=== PATIENT | female | born 1950 | race Caucasian/White ===

== ENCOUNTER → 2019-09-05 09:10 | Outpatient (BNVA) | payer MEDICARE, SELFPAY | PROVIDERS: Family Provider Family Medicine; PCP Family Medicine; Visit Provider Family Medicine | DX: K21.9 Gastro-esophageal reflux disease without esophagitis (principal); G47.00 Insomnia, unspecified; G47.09 Other insomnia; E78.5 Hyperlipidemia, unspecified; I10 Essential (primary) hypertension | CPT/HCPCS: 80053; 80061; 85025 ==

== ENCOUNTER 2019-11-29 10:06 | Emergency (ER) | payer MEDICARE, SELFPAY ==
[2019-11-29 10:15] VITALS: BP 179/79; PULSE 89; RESP 18; TEMP 36.8; O2SAT 96; BMI 34.9
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
[2019-11-29 11:11] VITALS: BP 164/68; PULSE 68; RESP 16; O2SAT 96
== END 2019-11-29 10:50 | disposition home or self-care (01) ==
LOC: ER 16:39
PROVIDERS: Emergency Provider Family Medicine; Family Provider Family Medicine; PCP Family Medicine
DX: S16.1XXA Strain of muscle, fascia and tendon at neck level, initial encounter (principal); X50.9XXA Other and unspecified overexertion or strenuous movements or postures, initial encounter
CPT/HCPCS: 12345; 99281

== ENCOUNTER → 2020-01-03 12:11 | Outpatient (BNVA) | payer MEDICARE, SELFPAY | PROVIDERS: Family Provider Family Medicine; PCP Family Medicine; Visit Provider Family Medicine | DX: E78.5 Hyperlipidemia, unspecified (principal); W57.XXXA Bitten or stung by nonvenomous insect and other nonvenomous arthropods, initial encounter; E11.9 Type 2 diabetes mellitus without complications; I10 Essential (primary) hypertension | CPT/HCPCS: 80053; 80061; 83036; 84443; 85025; 86618; 86666; 86757 ==

== ENCOUNTER 2020-02-25 10:06 | Outpatient (CLI) | payer MEDICARE, SELFPAY ==
--- NOTE | 2020-02-25 10:17 | XR_ITS ---
WS: [id number] Lateral views of cervical spine in the flexion, extension and neutral positions. 02/25/2020 Clinical Data: neck pain Comparison study: Cervical spine, 02/25/2020. Findings: The C4-C7 anterior cervical disc fusion is intact and stable. There is no motion seen throu gh this fusion. There is a small anterolisthesis of C3 on C4 of 0.2 cm which occurs during flexion. N o abnormalities are seen on extension.
--- NOTE | 2020-02-25 10:17 | XR_ITS ---
NOTE: Report was unsigned for reason: Order was edited. Original Signature date and time was: 02/25/20 1322 WS: [id number] Cervical spine, 3 views, 02/25/2020 Clinical Data: neck pain Comparison: None. Findings: The patient has had an anterior cervical disc fusion extending from C4 through C7 with artificial disc implants at C4-C5, C5-C6 and C6-C7. No compression fractures are seen. There is a small spur at the posterior inferior aspect of C3. The spinous processes are in good alignment. There is calcification to the right of the C4 vertebral body which may be in the right common carotid artery. The lung apices are unremarkable. The odontoid is normal. WS: [id number] Lateral views of cervical spine in the flexion, extension and neutral positions. 02/25/2020 Clinical Data: neck pain Comparison study: Cervical spine, 02/25/2020. Findings: The C4-C7 anterior cervical disc fusion is intact and stable. There is no motion seen through this fusion. There is a small anterolisthesis of C3 on C4 of 0.2 cm which occurs during flexion. No abnormalities are seen on extension. XR/XR cervical spine fl/ex [id number] Impression: 1. Intact anterior cervical disc fusion of C4-C7. 2. Small anterolisthesis of C3 on C4 on flexion. [facility] XR/XR cervical spine 3V* [id number] Impression: 1. Anterior cervical disc fusion from C4 through C7. 2. Possible calcification in the right common carotid artery.
== END 2020-02-25 10:07 | disposition home or self-care (01) ==
PROVIDERS: Family Provider Family Medicine; PCP Family Medicine; Visit Provider Family Medicine
DX: M54.2 Cervicalgia (principal); M43.22 Fusion of spine, cervical region
CPT/HCPCS: 72040; 72050

== ENCOUNTER 2020-02-28 15:27 | Outpatient (CLI) | payer MEDICARE, SELFPAY ==
--- NOTE | 2020-02-28 16:00 | CT_ITS ---
WS: [id number] CT cervical spine. Additional two-dimensional coronal and sagittal reconstruction was performed. 02/27 Clinical Data: Neck pain Comparison: Cervical spine, 02/25/2020. DLP: 1618.[address] scans at [facility] use at least one of these dose optimization techniques: automat ed exposure control; mA and/or kV adjustment per patient size (includes targeted exams where dose is matched to clinical indication); or iterative reconstruction. Findings: No compression fractures are seen. There is an anterior cervical disc fusion from C4 through C7. Meron ficial disc spacers are used at C4-5, C5-6 and C6-7. No prevertebral soft tissue swelling is noted. T he odontoid is normal.. The lung apices and the soft tissues of the neck show no significant abnormal ities. There are questionable calcifications in the region of the carotid bifurcations. C2-C3: No disc bulge, canal stenosis or foraminal stenosis is seen. C3-C4: No disc bulge, canal stenosis or foraminal stenosis is seen. C4-C5: No disc bulge, canal stenosis or foraminal stenosis is seen. C5-C6: Minimal posterior osteophyte formation is causing mild foraminal stenosis. C6-C7: Posterior osteophyte formation on the left causing left foraminal narrowing. C7-T1: No disc bulge, canal stenosis or foraminal stenosis is seen. CT/CT cervical spin wo con* [id number] Impression: 1. Intact anterior cervical disc fusion from C4 through C7. 2. Posterior osteophyte formation at C5-C6 causes mild bilateral foraminal sten osis. 3. Posterior osteophyte formation on the left at C6-C7 causes left foraminal na rrowing.
== END 2020-02-28 15:28 | disposition home or self-care (01) ==
LOC: RADWPI 15:31
PROVIDERS: Family Provider Family Medicine; PCP Family Medicine; Visit Provider Family Medicine
DX: M43.22 Fusion of spine, cervical region (principal); M25.78 Osteophyte, vertebrae; M48.02 Spinal stenosis, cervical region
CPT/HCPCS: 72125

== ENCOUNTER → 2020-04-30 15:30 | Outpatient (BNVA) | payer MEDICARE, SELFPAY | PROVIDERS: Family Provider Family Medicine; PCP Family Medicine; Visit Provider Family Medicine | DX: E11.9 Type 2 diabetes mellitus without complications (principal); E78.5 Hyperlipidemia, unspecified | CPT/HCPCS: 80053; 80061; 83036; 83721; 85025 ==

== ENCOUNTER 2020-05-07 06:00 | Outpatient (RCR) | payer MEDICARE, SELFPAY | END 2020-05-14 23:59 | disposition home or self-care (01) | LOC: TPT 06:00 | PROVIDERS: PCP Family Medicine; Referring Provider Family Medicine; Visit Provider Family Medicine | DX: G89.29 Other chronic pain (principal); M54.2 Cervicalgia | CPT/HCPCS: 97110; 97140; 97161; G0283 ==

== ENCOUNTER 2020-05-15 06:00 | Outpatient (RCR) | payer MEDICARE, SELFPAY | END 2020-06-14 23:59 | disposition home or self-care (01) | LOC: TPT 06:00 | PROVIDERS: PCP Family Medicine; Referring Provider Family Medicine; Visit Provider Family Medicine | DX: G89.29 Other chronic pain (principal); M54.2 Cervicalgia | CPT/HCPCS: 97110; 97140; G0283 ==

== ENCOUNTER 2020-06-15 06:00 | Outpatient (RCR) | payer MEDICARE, SELFPAY | END 2020-07-14 23:59 | disposition home or self-care (01) | LOC: TPT 06:00 | PROVIDERS: PCP Family Medicine; Visit Provider Family Medicine | DX: M54.2 Cervicalgia (principal); G89.29 Other chronic pain | CPT/HCPCS: 97110; 97140; G0283 ==

== ENCOUNTER → 2020-11-05 09:34 | Outpatient (BNVA) | payer MEDICARE, SELFPAY | PROVIDERS: PCP Family Medicine; Visit Provider Family Medicine | DX: E11.9 Type 2 diabetes mellitus without complications (principal); E55.9 Vitamin D deficiency, unspecified; E78.5 Hyperlipidemia, unspecified; I10 Essential (primary) hypertension | CPT/HCPCS: 80053; 80061; 82306; 83036; 84443; 85025 ==

== ENCOUNTER 2020-12-24 09:59 | Outpatient (CLI) | payer MEDICARE, SELFPAY ==
--- NOTE | 2020-12-24 10:30 | MM_ITS ---
WS: [id number] BILATERAL DIGITAL SCREENING MAMMOGRAPHY WITH CAD CLINICAL INFORMATION: Z12.31 - Encounter for screening mammogram for malignant neoplasm of breast HISTORY: Screening mammogram. No current complaints. COMPARISON: and January 24, 2017 TECHNIQUE: Bilateral CC and MLO views. FINDINGS: Scattered fibroglandular densities bilaterally. No suspicious focal mass, asymmetry, calcifications, or architectural distortion. No evidence of malignancy. Incidental punctate and lucent centered calci fications. MM/[place] [id number] IMPRESSION: BI-RADS: 2-Benign FOLLOW UP: 1 Year Follow-up Recommend return to annual screening mammography.
== END 2020-12-24 10:00 | disposition home or self-care (01) ==
PROVIDERS: PCP Family Medicine; Visit Provider Family Medicine
DX: Z12.31 Encounter for screening mammogram for malignant neoplasm of breast (principal)
CPT/HCPCS: 77067

== ENCOUNTER → 2021-01-19 11:00 | Outpatient (BNVA) | payer MEDICARE, SELFPAY | PROVIDERS: PCP Family Medicine; Visit Provider Family Medicine | DX: L98.9 Disorder of the skin and subcutaneous tissue, unspecified (principal) | CPT/HCPCS: 88304; 88305 ==

== ENCOUNTER → 2021-02-11 11:56 | Outpatient (BNVA) | payer MEDICARE, SELFPAY | PROVIDERS: PCP Family Medicine; Visit Provider Family Medicine | DX: E11.9 Type 2 diabetes mellitus without complications (principal); I10 Essential (primary) hypertension; E78.2 Mixed hyperlipidemia; G47.00 Insomnia, unspecified; K21.9 Gastro-esophageal reflux disease without esophagitis; Z79.4 Long term (current) use of insulin | CPT/HCPCS: 80053; 80061; 83036; 83721; 84443; 85025 ==

== ENCOUNTER → 2021-04-23 09:26 | Outpatient (BNVA) | payer MEDICARE, SELFPAY | PROVIDERS: PCP Family Medicine; Visit Provider Nurse Practitioner Family | DX: Z20.822 Contact with and (suspected) exposure to COVID-19 (principal) | CPT/HCPCS: 87635 ==

== ENCOUNTER → 2021-05-12 10:51 | Outpatient (BNVA) | payer MEDICARE, SELFPAY | PROVIDERS: PCP Family Medicine; Visit Provider Family Medicine | DX: R05 Cough (principal) | CPT/HCPCS: 87635 ==

== ENCOUNTER → 2021-05-29 09:53 | Outpatient (BNVA) | payer MEDICARE, SELFPAY | PROVIDERS: PCP Family Medicine; Visit Provider Family Medicine | DX: R05.9 Cough, unspecified (principal); R53.83 Other fatigue | CPT/HCPCS: 71046; 82607 ==

== ENCOUNTER → 2021-07-20 12:08 | Outpatient (BNVA) | payer MEDICARE, SELFPAY | PROVIDERS: PCP Family Medicine; Visit Provider Family Medicine | DX: E11.9 Type 2 diabetes mellitus without complications (principal); E78.2 Mixed hyperlipidemia; G47.00 Insomnia, unspecified; I10 Essential (primary) hypertension; Z79.4 Long term (current) use of insulin | CPT/HCPCS: 80053; 80061; 83036; 83721; 84443; 85025 ==

== ENCOUNTER → 2021-11-24 11:23 | Outpatient (BNVA) | payer MEDICARE, OTHER, SELFPAY | PROVIDERS: PCP Family Medicine; Visit Provider Family Medicine | DX: I10 Essential (primary) hypertension (principal); E11.9 Type 2 diabetes mellitus without complications; Z79.4 Long term (current) use of insulin; E78.2 Mixed hyperlipidemia; G47.00 Insomnia, unspecified; J45.909 Unspecified asthma, uncomplicated | CPT/HCPCS: 80053; 80061; 83036; 84443; 85025 ==

== ENCOUNTER 2022-01-23 07:58 | Observation (INO) | payer MEDICARE, SELFPAY ==
[2022-01-23] VITALS (8 sets, daily range): BP systolic 125–166; BP diastolic 64–86; PULSE 59–83; RESP 14–19; TEMP 36.8–37; O2SAT 92–97; BMI 34.0; BMI 33.6
--- NOTE | 2022-01-23 08:36 | ECG_ITS ---
[facility] Test Date: 2022-01-23 Pat Name: Lauren Avalos Department: Room: Gender: Female Certified Ophthalmic Surgical Assistant: : [id number] Requested By: Sabino Hardin Order Number: [id number] Kevin MD: Glen Miller M.D. Measurements Intervals [place] Rate: 73 P: 6 WA: 164 QRS: 41 QRSD: 85 T: 2 QT: 368 QTc: 408 Interpretive Statements SINUS RHYTHM LOW QRS VOLTAGE IN PRECORDIAL LEADS [QRS DEFLECTION < 1.0 mV IN CHEST LEADS] ANTEROSEPTAL MYOCARDIAL INFARCTION , OF INDETERMINATE AGE [40+ ms Q WAVE IN V1-V4] No previous ECG available for comparison Electronically Signed On 01-23-2022 18:59:04 CDT by Glen Miller M.D. [id number]
--- NOTE | 2022-01-23 08:36 | CTR_ITS ---
PROCEDURE INFORMATION: Exam: CT Head Without Contrast Exam date and time: 01/23/2022 8:55 AM Age: 71 years old Clinical indication: Stroke-like symptoms; Headache; Lt upper extremity weakness; Additional info: Symptoms of acute stroke TECHNIQUE: Imaging protocol: Computed tomography of the head without contrast. Radiation optimization: All CT scans at this facility use at least one of these dose optimization techniques: automated exposure control; mA and/or kV adjustment per patient size (includes targeted exams where dose is matched to clinical indication); or iterative reconstruction. Other technique: STROKE PROTOCOL was implemented. COMPARISON: CT cervical spin wo con* [id number] 02/28/2020 3:54 PM RADIATION DOSE METRICS: Total DLP (mGy-cm): 769.69 FINDINGS: Brain: There are tiny old lacunar infarcts a in the left basal ganglia. No intracranial hemorrhage, edema or other acute abnormalities are seen in the brain. There is no mass effect or midline shift. Cerebral ventricles: No ventriculomegaly. Paranasal sinuses: Visualized sinuses are unremarkable. No fluid levels. Mastoid air cells: Visualized mastoid air cells are well aerated. Bones/joints: Unremarkable. No acute fracture. Soft tissues: Unremarkable. CT/CT head wo con* [id number] IMPRESSION: Tiny old lacunar infarcts in the left basal ganglia. No acute abnormality. ASSESSMENT: ASPECTS ([place] Stroke Program Early CT Score) is 10.
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
[2022-01-23 08:55] LABS: Basophils % 0.3 %; Eosinophils # 0.3 10^3/uL (0.0-0.8); Eosinophils % 2.6 %; Hematocrit 47.4 % (37.0-47.0); Hemoglobin 15.6 g/dL (11.5-15.3); Lymphocytes # 3.7 10^3/uL (0.8-4.8); Lymphocytes % 31.7 %; Mean Corpuscular HGB Conc 32.9 g/dL (30.0-36.0); Mean Corpuscular Hemoglobin 30.1 pg (28.0-34.0); Mean Corpuscular Volume 91.5 fl (81-99); Mean Platelet Volume 10.7 fL (7.4-10.4); Monocytes # 1.1 10^3/uL (0.2-0.9); Monocytes % 9.1 %; Neutrophils # 6.47 10^3/uL (1.8-7.7); Nucleated Red Blood Cells % 0 %; Platelet Count 252 10^3/cmm (130-400); Red Blood Count 5.18 10^6/uL (4.1-5.3); Red Cell Distribution Width 13.9 % (12.1-15.1); White Blood Count 11.6 10^3/uL (4.0-10.0)
[2022-01-23 08:56] LABS: Add Urine Microscopic? NO; Charge for UA Resulting for Rev
[2022-01-23 09:07] LABS: Amphetamines Screen Urine Negative (Negative); Barbiturates Screen Urine Negative (Negative); Benzodiazepines Screen Urine Positive (Negative); Cocaine Screen Urine Negative (Negative); Opiate Screen Urine Negative (Negative); PCP Screen Urine Negative (Negative); THC Screen Urine Negative (Negative)
[2022-01-23 09:18] LABS: Alanine Aminotransferase 28 U/L (0-33); Albumin Level 4.6 g/dL (3.5-5.2); Alkaline Phosphatase 66 IU/L (35-105); Anion Gap 17.4 (5-19); Aspartate Amino Transferase 38 U/L (0-32); Blood Urea Nitrogen 25 mg/dL (8-23); Calcium 9.6 mg/dL (8.5-10.5); Carbon Dioxide 26 mmol/L (22-29); Chloride 102 mmol/L (98-107); Globulin 2.4 g/dL (1.3-4.6); Glucose 115 mg/dL (65-115); Magnesium 2.2 mg/dL (1.7-2.3); Osmolality Calculated 297 mOsm/kg (285-295); Potassium 4.4 mmol/L (3.5-5.1); Sodium 141 mmol/L (136-145); Total Bilirubin 0.3 mg/dL (0.15-1.2); Troponin(5th) Baseline 6 ng/L (0-10)
[2022-01-23 09:19] LABS: Bilirubin Urine Neg (Negative); Blood Urine Neg (Negative); Glucose Urine UA 4+ (Normal); Ketones Urine Negative (Negative); Leukocyte Esterase Urine Negative (Negative); Nitrate Urine Negative (Negative); Protein Urine Neg (Negative); Specific Gravity, Urine 1.015 (1.005-1.030); Urine Appearance Clear (CLEAR); Urine Color Yellow (Yellow); Urobilinogen Urine Norm (Negative); pH Urine 5 (5-7)
--- NOTE | 2022-01-23 09:20 | PC.PHAR ---
pt states she takes care of her own medications-pt states she use to have an inhaler but no longer uses them
[2022-01-23 11:23] LABS: Troponin 5 2HR 6.34 ng/L (0-10)
[2022-01-23 11:33] LABS: Troponin 5 2HR Delta 0.34 ABS# (0-10)
[2022-01-23 11:57] LABS: Glucose Point of Care 64 mg/dL (70-110)
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
--- NOTE | 2022-01-23 14:41 | USCV_ITS ---
Lauren Avalos Age: 71 Gender: F : 1950 Exam Date: 01/23/2022 15:11 Ordering Phys: Megan Good MD Technologist: CEASAR Exam Location: [facility] [place] Indication: STROKE BP: 146 / 81 HR: 58 Rhythm: Sinus Technical Quality: Adequate MEASUREMENTS (Male / Female) Normal Values 2D ECHO LV Diastolic Diameter PLAX 4.4 cm 4.2 - 5.9 / 3.9 - 5.3 cm LV Systolic Diameter PLAX 2.9 cm IVS Diastolic Thickness 1.5 cm 0.6 - 1.0 / 0.6 - 0.9 cm IVS Systolic Thickness 1.7 cm LVPW Diastolic Thickness 1.0 cm 0.6 - 1.0 / 0.6 - 0.9 cm LVPW Systolic Thickness 1.2 cm LVOT Diameter 2.0 cm LV Ejection Fraction 2D Teich 63.3 % LV Ejection Fraction MOD 2C 62.0 % LV Ejection Fraction 2C AL 57.5 % LA Diameter 3.4 cm LA Width 3.0 cm LA Height 4.7 cm RA Width 3.8 cm RA Height 4.5 cm Aorta at Sinotubular Diameter 2.2 cm IVC Diameter 1.7 cm M-MODE Aortic Annulus Diameter 3.1 cm LA Ao Ratio MM 1.1 DOPPLER AV Peak Velocity 150.7 cm/s LVOT Peak Velocity 89.0 cm/s AV Area Cont Eq vti 2.1 cm squared AV Area Cont Eq pk 1.9 cm squared MV Peak Velocity 126.0 cm/s MV Area PHT 3.2 cm squared Mitral E to A Ratio 0.8 MV E' Velocity 48.0 cm/s Mitral E to MV E' Ratio 13.6 Mitral E to LV E' Lateral Ratio 11.4 Mitral E to LV E' Septal Ratio 17.4 TR Peak Velocity 158.4 cm/s TR Peak Gradient 10.0 mmHg TR Mean Velocity 137.4 cm/s TR Mean Gradient 7.8 mmHg TR Velocity Time Integral 45.8 cm TV Peak E Velocity 50.0 cm/s Right Atrial Pressure 3.0 mmHg Pulmonary Artery Systolic Pressu 13.0 mmHg PV Peak Velocity 85.0 cm/s RV Acceleration Time 0.1 s RV Ejection Time 0.3 s RV AcT/ET 0.2 FINDINGS Left Ventricle Normal left ventricular size and systolic function, EF 55 %. No regional wall motion abnormalities. Grade I/IV diastolic dysfunction (abnormal relaxation filling pattern), normal to mildly elevated filling pressures. Right Ventricle The right ventricle is normal in size and function. Right Atrium The right atrium is normal in size. Left Atrium Mildly increased left atrial size. Mitral Valve Thickened mitral valve. Mild mitral annular calcification. Trace mitral valve regurgitation. Aortic Valve Mild aortic valve regurgitation. Tricuspid Valve No gross abnormalities noted Pulmonic Valve Pulmonic valve not well visualized. Pericardium Normal pericardium without effusion. Aorta Normal ascending aorta dimension. IVC Inferior vena cava not visualized. CONCLUSIONS Normal left ventricular size and systolic function, EF 55 %. No regional wall motion abnormalities. Type I diastolic dysfunction. Thickened mitral valve. Mild mitral annular calcification. Trace mitral valve regurgitation. Mild aortic valve regurgitation. Mildly increased left atrial size. There is no pericardial effusion. There are no intracardiac masses. No previous study is available for comparison. Dr Glen Miller MD FACC (Electronically Signed) Final Date: 23 January 2022 16:49 S
--- NOTE | 2022-01-23 14:41 | CTR_ITS ---
PROCEDURE INFORMATION: Exam: CT Angiography Head With Contrast, Arteriography Exam date and time: 01/23/2022 4:51 PM Age: 71 years old Clinical indication: Weakness; Additional info: CVA TECHNIQUE: Imaging protocol: Computed tomography angiography of the head with contrast. Exam focused on the arteries. 3D rendering (Not supervised by radiologist): MIP and/or 3D reconstructed images were created by the technologist. Radiation optimization: All CT scans at this facility use at least one of these dose optimization techniques: automated exposure control; mA and/or kV adjustment per patient size (includes targeted exams where dose is matched to clinical indication); or iterative reconstruction. Contrast material: OMNIPAQUE 350; Contrast volume: 95 ml; Contrast route: INTRAVENOUS (IV); COMPARISON: CT head wo con* [id number] 01/23/2022 8:55 AM RADIATION DOSE METRICS: Total DLP (mGy-cm): 2129.49 FINDINGS: ANTERIOR CIRCULATION: Right internal carotid artery: Calcified plaque in the cavernous right internal carotid artery without significant stenosis. Right middle cerebral artery: Unremarkable. No occlusion or significant stenosis. No aneurysm. Right anterior cerebral artery: Unremarkable. No occlusion or significant stenosis. No aneurysm. Left internal carotid artery: Calcified plaque in the cavernous left internal carotid artery without significant stenosis. Left middle cerebral artery: Unremarkable. No occlusion or significant stenosis. No aneurysm. Left anterior cerebral artery: Unremarkable. No occlusion or significant stenosis. No aneurysm. POSTERIOR CIRCULATION: Right vertebral artery: Unremarkable. No occlusion or significant stenosis. No aneurysm. Left vertebral artery: Unremarkable. No occlusion or significant stenosis. No aneurysm. Basilar artery: Unremarkable. No occlusion or significant stenosis. No aneurysm. Right posterior cerebral artery: Unremarkable. No occlusion or significant stenosis. No aneurysm. Left posterior cerebral artery: Unremarkable. No occlusion or significant stenosis. No aneurysm. Brain: Small chronic lacunar infarct in the left lentiform nucleus. No intracranial hemorrhage. No abnormal enhancement. Cerebral ventricles: No ventriculomegaly. Orbital cavities: Prior cataract surgery. Bones/joints: Unremarkable. No acute fracture. Soft tissues: Unremarkable. PROCEDURE INFORMATION: Exam: CT Angiography Neck With Contrast Exam date and time: 01/23/2022 4:51 PM Age: 71 years old Clinical indication: Weakness; Additional info: CVA TECHNIQUE: Imaging protocol: Computed tomography angiography of the neck with contrast. 3D rendering (Not supervised by radiologist): MIP and/or 3D reconstructed images were created by the technologist. Radiation optimization: All CT scans at this facility use at least one of these dose optimization techniques: automated exposure control; mA and/or kV adjustment per patient size (includes targeted exams where dose is matched to clinical indication); or iterative reconstruction. Contrast material: OMNIPAQUE 350; Contrast volume: 95 ml; Contrast route: INTRAVENOUS (IV); COMPARISON: CT cervical spin wo con* [id number] 02/28/2020 3:54 PM RADIATION DOSE METRICS: Total DLP (mGy-cm): 2129.49 FINDINGS: Right common carotid artery: No stenosis. No dissection or occlusion. Right internal carotid artery: No stenosis of the extracranial segment. No dissection or occlusion. Right external carotid artery: No occlusion or stenosis of the origin. Left common carotid artery: Calcified plaque at the origin of the left common carotid artery without significant stenosis. Left internal carotid artery: Calcified plaque in the proximal left internal carotid artery with 15% diameter stenosis. Left external carotid artery: No occlusion or stenosis of the origin. Right vertebral artery: No stenosis. No dissection or occlusion. Left vertebral artery: No stenosis. No dissection or occlusion. Right subclavian artery: Calcified plaque in the proximal right subclavian artery without significant stenosis. Thyroid: 1.4 cm partially calcified right thyroid nodule. Soft tissues: Normal. No significant soft tissue swelling. Bones/joints: No acute fracture. CT/CT angio headneck* [id number] IMPRESSION: 1. No large artery occlusion or stenosis. IMPRESSION: 1. Calcified plaque with 15% diameter stenosis in the proximal left internal carotid artery. 2. 1.4 cm calcified right thyroid nodule. Ultrasound follow-up is recommended. COMMENTS: Consistent with the [employer]'s Incidental Findings Committee white paper (J Am Dangelo Radiol 2015): In patients aged 35 years and older with an incidental thyroid nodule equal to or greater than 1.[address], MRI or extrathyroidal US, further evaluation with dedicated thyroid US is recommended for patients with normal life expectancy and without comorbidities. For smaller nodules without suspicious features, no further evaluation or follow up is recommended. REFERENCES: NASCET CRITERIA. The degree of internal carotid artery stenosis is based on NASCET criteria. Normal is no stenosis. Mild is less than 50% stenosis. Moderate is 50-69% stenosis. Severe is 70% to 99% stenosis. Total occlusion is no detectable patent lumen.
[2022-01-23] MEDS: enoxaparin 40 mg/0.4 mL Syringe SUBCUT (15:27)
[2022-01-23] MEDS: iohexol 350 mg/mL 100 mL Btl IV (16:56)
[2022-01-23 17:24] LABS: Troponin 5 6HR Delta 0 ng/L (0-12)
[2022-01-23 18:00] LABS: Glucose Point of Care 77 mg/dL (70-110)
[2022-01-23 20:39] LABS: Glucose Point of Care 151 mg/dL (70-110)
[2022-01-23] MEDS: montelukast sodium 10 mg Tablet PO (21:13)
[2022-01-23] MEDS: atorvastatin 40 mg Tablet PO (21:13)
[2022-01-23] MEDS: amlodipine 5 mg Tablet PO (21:13)
[2022-01-23] MEDS: temazepam 15 mg Capsule 30 MG PO (23:45)
[2022-01-24] VITALS (12 sets, daily range): BP systolic 108–148; BP diastolic 67–82; PULSE 62–79; RESP 14–18; TEMP 36.3–37.1; O2SAT 92–98
[2022-01-24 04:29] LABS: Basophils % 0.3 %; Eosinophils # 0.3 10^3/uL (0.0-0.8); Eosinophils % 3.3 %; Hematocrit 47.7 % (37.0-47.0); Hemoglobin 15.3 g/dL (11.5-15.3); Lymphocytes # 3.8 10^3/uL (0.8-4.8); Mean Corpuscular HGB Conc 32.1 g/dL (30.0-36.0); Mean Corpuscular Hemoglobin 30.2 pg (28.0-34.0); Mean Corpuscular Volume 94.3 fl (81-99); Mean Platelet Volume 10.5 fL (7.4-10.4); Monocytes # 0.9 10^3/uL (0.2-0.9); Monocytes % 9.7 %; Neutrophils # 4.39 10^3/uL (1.8-7.7); Neutrophils % 46.5 %; Nucleated Red Blood Cells % 0 %; Platelet Count 259 10^3/cmm (130-400); Red Blood Count 5.06 10^6/uL (4.1-5.3); White Blood Count 9.5 10^3/uL (4.0-10.0)
[2022-01-24 04:49] LABS: Anion Gap 14.3 (5-19); Blood Urea Nitrogen 20 mg/dL (8-23); Calcium 9.4 mg/dL (8.5-10.5); Carbon Dioxide 26 mmol/L (22-29); Chloride 104 mmol/L (98-107); Glucose 108 mg/dL (65-115); Osmolality Calculated 293 mOsm/kg (285-295); Potassium 4.3 mmol/L (3.5-5.1); Sodium 140 mmol/L (136-145)
[2022-01-24 06:47] LABS: Glucose Point of Care 107 mg/dL (70-110)
[2022-01-24] MEDS: losartan 50 mg Tablet 100 MG PO (08:10)
[2022-01-24] MEDS: clopidogrel 75 mg Tablet PO (08:12)
[2022-01-24] MEDS: aspirin 81 mg EC Tablet PO (08:12)
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
[2022-01-24 12:38] LABS: Glucose Point of Care 154 mg/dL (70-110)
[2022-01-24] MEDS: insulin lispro 100 unit/1 mL SUBCUT (13:14)
[2022-01-24] MEDS: enoxaparin 40 mg/0.4 mL Syringe SUBCUT (15:18)
--- NOTE | 2022-01-24 16:16 | PC.NURSE ---
Patient is concerned about the possibility of a stroke is and wanting to know if she can either see a neurologist or be referred to one for a follow up. I calmed patient down with discussion of concerns and I informed Dr. Good of patient's concerns via VOALTE.
[2022-01-24 17:09] LABS: Glucose Point of Care 102 mg/dL (70-110)
[2022-01-24] MEDS: temazepam 15 mg Capsule 30 MG PO (20:50)
[2022-01-24] MEDS: montelukast sodium 10 mg Tablet PO (20:51)
[2022-01-24] MEDS: amlodipine 5 mg Tablet PO (20:51)
[2022-01-24] MEDS: atorvastatin 40 mg Tablet PO (20:51)
[2022-01-24 21:14] LABS: Glucose Point of Care 144 mg/dL (70-110)
[2022-01-25 03:00] VITALS: BP 132/84; PULSE 67; RESP 18; TEMP 36.8; O2SAT 94
[2022-01-25 05:27] VITALS: PULSE 68
[2022-01-25] MEDS: losartan 50 mg Tablet 100 MG PO (05:49)
[2022-01-25 06:57] LABS: Glucose Point of Care 92 mg/dL (70-110)
[2022-01-25 07:00] VITALS: BP 126/73; PULSE 79; RESP 13; TEMP 36.6; O2SAT 93
[2022-01-25 08:00] VITALS: PULSE 77; RESP 17; O2SAT 94
[2022-01-25] MEDS: clopidogrel 75 mg Tablet PO (08:47)
[2022-01-25] MEDS: aspirin 81 mg EC Tablet PO (08:47)
--- NOTE | 2022-01-25 09:30 | MR_ITS ---
WS: [id number] MRI HEAD WITHOUT CONTRAST TECHNIQUE: Sagittal T1, T2 axial, T2 axial FLAIR, axial and coronal T1 images, axial susceptibility w eighted imaging, axial diffusion weighted images, and coronal T2 images were obtained. CLINICAL INFORMATION: Left arm numbness COMPARISON: CT January 23, 2022 FINDINGS: No evidence of restricted diffusion to suggest acute ischemia. Ventricular system and basal cisterns are patent. Mild small vessel changes. Moderate parenchymal volume loss. Normal posterior fossa. Norm al vascular flow voids at the skull base. No extra-axial fluid collections. No evidence of mass or ma ss effect. Paranasal sinuses and mastoid air cells well aerated. Normal optic chiasm and pituitary infundibulum. Temporal lobes and hippocampal formations are normal in appearance. Postoperative changes in the upper cervical spine partially visualized. MR/MR head wo con* [id number] IMPRESSION: 1. No evidence of restricted diffusion to suggest acute ischemia. 2. Mild small vessel changes. Moderate parenchymal volume loss. 3. No hemosiderin on susceptibly weighted images. 4. No other significant findings.
[2022-01-25 11:00] VITALS: BP 136/82; PULSE 72; RESP 13; O2SAT 96
--- NOTE | 2022-01-25 13:02 | PM.DCS ---
Discharge Providers Date of Admission: 01/23/22 10:37 Date of Discharge: January 25, 2022 Attending Provider at Admission: Megan Good MD Attending Provider at Discharge: Megan Good MD Primary Care Provider: Maryam Mehta MD Diagnoses at Discharge Discharge Diagnosis (1) Numbness and tingling in left arm: Status: Acute Reason for Visit Reason for Visit: pt believes she had a stroke on 01/20, numbness&weak Hospital Course Hospital Course 71-year-old female who was admitted for evaluation of numbness of her left arm and weakness of left leg. CTA head and neck unremarkable, echo was unremarkable no intracardiac shunt, recent hemoglobin A1c 7.7 lipid profile was also reviewed, MRI did not show any acute ischemic changes. My suspicion is high for diabetes related polyneuropathy. Patient is asking if she could see a neurologist, will give her referral to see Dr. Sanchez. At this point I am not adding aspirin, she is already on statins and antihypertensive regimen. Blood pressure at the time of discharge 136/82 mmHg. Her rhythm remained sinus. NIH 0 there is no weakness at all of her left leg. Her numbness has improved and she is feeling better. Please note, she has remained pretty low on her POC glucose, she never experienced hypoglycemic symptoms, I did ask her to reduce her Premeal insulin I did not give her Farxiga, patient is very happy with her Farxiga and insulin combination I have asked her to reduce the dose of Premeal insulin from 10 units to at least 4 units for now and monitor her blood sugar and maintain a log as she is already doing it. Endocrinology referral at the time of discharge as well. Physical Exam Narrative: NIH 0 Nonfocal neuro exam Numbness is improved S1, S2 sinus rhythm Abdomen soft Very pleasant and cooperative Saturating well on room air No sensory deficit on crude touch EOMI, PERRLA Discharge Data Studies Completed and Pending Completed Studies During Hospitalization Category Date Time Status CT head wo con* [id number] Stat Cat Scan 01/23/22 08:36 Completed CTA head neck [CT angio headneck* [id number]] Routine Cat Scan 01/23/22 14:41 Completed MR head wo con* [id number] Routine MRI 01/25/22 09:30 Completed CV. echo complete* [id number] Routine Ultrasound 01/23/22 14:41 Completed Radiology Impressions Head CT 01/23/22 08:36 IMPRESSION: Tiny old lacunar infarcts in the left basal ganglia. No acute abnormality. ASSESSMENT: ASPECTS ([place] Stroke Program Early CT Score) is 10. Head/Neck CTA 01/23/22 14:41 IMPRESSION: 1. No large artery occlusion or stenosis. IMPRESSION: 1. Calcified plaque with 15% diameter stenosis in the proximal left internal carotid artery. 2. 1.4 cm calcified right thyroid nodule. Ultrasound follow-up is recommended. COMMENTS: Consistent with the [employer]'s Incidental Findings Committee white paper (J Am Dangelo Radiol 2015): In patients aged 35 years and older with an incidental thyroid nodule equal to or greater than 1.[address], MRI or extrathyroidal US, further evaluation with dedicated thyroid US is recommended for patients with normal life expectancy and without comorbidities. For smaller nodules without suspicious features, no further evaluation or follow up is recommended. REFERENCES: NASCET CRITERIA. The degree of internal carotid artery stenosis is based on NASCET criteria. Normal is no stenosis. Mild is less than 50% stenosis. Moderate is 50-69% stenosis. Severe is 70% to 99% stenosis. Total occlusion is no detectable patent lumen. Head MRI 01/25/22 09:30 IMPRESSION: 1. No evidence of restricted diffusion to suggest acute ischemia. 2. Mild small vessel changes. Moderate parenchymal volume loss. 3. No hemosiderin on susceptibly weighted images. 4. No other significant findings. Laboratory Results WBC 9.5 10^3/uL (4.0-10.0) 01/24/22 04:13 RBC 5.06 10^6/uL (4.1-5.3) 01/24/22 04:13 Hgb 15.3 g/dL (11.5-15.3) 01/24/22 04:13 Hct 47.7 % (37.0-47.0) H 01/24/22 04:13 MCV 94.3 fl (81-99) 01/24/22 04:13 MCH 30.2 pg (28.0-34.0) 01/24/22 04:13 MCHC 32.1 g/dL (30.0-36.0) 01/24/22 04:13 RDW 14.0 % (12.1-15.1) 01/24/22 04:13 Plt Count 259 10^3/cmm (130-400) 01/24/22 04:13 MPV 10.5 fL (7.4-10.4) H 01/24/22 04:13 Neut % (Auto) 46.5 % 01/24/22 04:13 Lymph % (Auto) 40.0 % 01/24/22 04:13 [place] % (Auto) 9.7 % 01/24/22 04:13 Eos % (Auto) 3.3 % 01/24/22 04:13 Baso % (Auto) 0.3 % 01/24/22 04:13 Neut # (Auto) 4.39 10^3/uL (1.8-7.7) 01/24/22 04:13 Lymph # (Auto) 3.8 10^3/uL (0.8-4.8) 01/24/22 04:13 [place] # (Auto) 0.9 10^3/uL (0.2-0.9) 01/24/22 04:13 Eos # (Auto) 0.3 10^3/uL (0.0-0.8) 01/24/22 04:13 Baso # (Auto) 0.0 10^3/uL (0.0-0.1) 01/24/22 04:13 Nucleated RBC % (auto) 0 % 01/24/22 04:13 Nucleated RBCs # 0.0 /100WBC 01/24/22 04:13 Sodium 140 mmol/L (136-145) 01/24/22 04:13 Potassium 4.3 mmol/L (3.5-5.1) 01/24/22 04:13 Chloride 104 mmol/L (98-107) 01/24/22 04:13 Carbon Dioxide 26 mmol/L (22-29) 01/24/22 04:13 Anion Gap 14.3 (5-19) 01/24/22 04:13 BUN 20 mg/dL (8-23) 01/24/22 04:13 Creatinine 0.7 mg/dL (0.5-0.9) 01/24/22 04:13 GFR Calculation Not Reportable 01/24/22 04:13 Glucose 108 mg/dL (65-115) 01/24/22 04:13 POC Glucose 92 mg/dL (70-110) 01/25/22 06:47 Calculated Osmolality 293 mOsm/kg (285-295) 01/24/22 04:13 Calcium 9.4 mg/dL (8.5-10.5) 01/24/22 04:13 Magnesium 2.2 mg/dL (1.7-2.3) 01/23/22 08:50 Total Bilirubin 0.3 mg/dL (0.15-1.2) 01/23/22 08:50 AST 38 U/L (0-32) H 01/23/22 08:50 ALT 28 U/L (0-33) 01/23/22 08:50 Alkaline Phosphatase 66 IU/L (35-105) 01/23/22 08:50 Troponin T Baseline 6 ng/L (0-10) 01/23/22 08:50 Troponin T 120 Minute 6.34 ng/L (0-10) 01/23/22 10:47 Delta Troponin T 0.34 ABS# (0-10) 01/23/22 10:47 Troponin T Hi Sens 6Hr 6.00 ng/L (0-10) 01/23/22 14:29 Troponin T Hi Sens 6Hr Delta 0 ng/L (0-12) 01/23/22 14:29 Total Protein 7.0 g/dL (6.6-8.7) 01/23/22 08:50 Albumin 4.6 g/dL (3.5-5.2) 01/23/22 08:50 Globulin 2.4 g/dL (1.3-4.6) 01/23/22 08:50 Urine Color Yellow (Yellow) 01/23/22 08:21 Urine Appearance Clear (CLEAR) 01/23/22 08:21 Urine pH 5 (5-7) 01/23/22 08:21 Ur Specific [place] 1.015 (1.005-1.030) 01/23/22 08:21 Urine Protein Neg (Negative) 01/23/22 08:21 Urine Glucose (UA) 4+ (Normal) H 01/23/22 08:21 Urine Ketones Negative (Negative) 01/23/22 08:21 Urine Blood Neg (Negative) 01/23/22 08:21 Urine Nitrate Negative (Negative) 01/23/22 08:21 Urine Bilirubin Neg (Negative) 01/23/22 08:21 Urine Urobilinogen Norm mg/dL (Negative) 01/23/22 08:21 Ur Leukocyte Esterase Negative (Negative) 01/23/22 08:21 Urine Opiates Screen Negative ng/mL (Negative) 01/23/22 08:21 Ur Barbiturates Screen Negative ng/mL (Negative) 01/23/22 08:21 Ur Phencyclidine Scrn Negative ng/mL (Negative) 01/23/22 08:21 Ur Amphetamines Screen Negative ng/mL (Negative) 01/23/22 08:21 U Benzodiazepines Scrn Positive ng/mL (Negative) H 01/23/22 08:21 Urine Cocaine Screen Negative ng/mL (Negative) 01/23/22 08:21 U Marijuana (THC) Screen Negative ng/mL (Negative) 01/23/22 08:21 Vitals Last Vital Signs Temp 97.8 F 01/25/22 07:00 Pulse 72 01/25/22 11:00 Resp 13 01/25/22 11:00 BP 136/82 01/25/22 11:00 Pulse Ox 96 01/25/22 11:00 Discharge Plan Discharge Patient Disposition: Home Condition: Stable Prescriptions: Continued (DME) Blood Glucose Test Strip See Rx Instructions .Route Qty: 100 0RF Rx Instructions: As directed Easy touch brand. Farxiga 10 mg tablet 10 mg PO QAM Qty: 90 3RF Rx Instructions: 340B Levemir FlexTouch U-100 Insuln 100 unit/mL (3 mL) insulin pen See Rx Instructions .ROUTE .COMPLEX Qty: 45 2RF Dose Instruction: INJECT 30 UNITS UNDER SKIN IN THE MORNING AND 35 UNITS IN THE EVENING Rx Instructions: INJECT 35 UNITS UNDER SKIN IN THE MORNING AND 40 UNITS IN THE EVENING (DME) FreeStyle Pardeep 14 Day [place] Misc See Rx Instructions .Route Qty: 1 0RF Rx Instructions: As directed (DME) FreeStyle Pardeep 14 Day Sensor Kit See Rx Instructions .Route Qty: 1 4RF Rx Instructions: As directed multivitamin Tablet 1 tab PO DAILY 0RF Total People Plus 2 tab PO BID 0RF cetirizine 10 mg tablet 10 mg PO QAM 0RF amlodipine 5 mg tablet 5 mg PO BEDTIME 0RF temazepam 30 mg capsule 30 mg PO BEDTIME 0RF diclofenac sodium 75 mg tablet,delayed release (/EC) 75 mg PO Q12H 0RF montelukast 10 mg tablet 10 mg PO BEDTIME 0RF losartan 100 mg tablet 100 mg PO QAM 0RF rosuvastatin [Crestor] 10 mg tablet 10 mg PO BEDTIME 0RF Changed insulin aspart U-100 [Novolog Flexpen U-100 Insulin] 100 unit/mL (3 mL) insulin pen 4 unit SUBCUT TID Qty: 45 4RF Rx Instructions: 10 units before each meal 340B plan Discharge Orders: Discharge Order (Routine); Ordered 01/25/22 Ordered By: Megan Good Referrals: Shaylee Sanchez MD [Physician] - 01/26/22 10:00 am Maryam Mehta MD [Primary Care Provider] - 02/01/22 4:00 pm Parag Colon MD [Physician] - 4-7 days Patient Instructions: Opioid Safety Discharge Attestations Time Spent in Discharge Care*: less than 30 min Quality Metrics Clinical Quality Measures [ No reported AMI, CVA or VTE this stay] Coding Level of Care Code Acute Chg FW DC note Diagnoses Numbness and tingling in left arm R20.0; R20.2
[2022-01-25 13:23] LABS: Glucose Point of Care 142 mg/dL (70-110)
[2022-01-25 15:16] VITALS: BP 136/82; PULSE 72; RESP 13; TEMP 36.6; O2SAT 96
[2022-01-25 15:25] LABS: Free T4 Free Thyroxine 1.16 ng/dL (0.82-1.77); Thyroid Stimulating Hormone 3.26 uIU/mL (0.27-4.20)
== END 2022-01-25 15:17 | disposition home or self-care (01) ==
LOC: ER 10:36 → MEDSURG 12:04
PROVIDERS: Admitting Provider Internal Medicine; Emergency Provider Emergency Medicine; PCP Family Medicine; Visit Provider Internal Medicine
DX: R20.0 Anesthesia of skin (principal); R20.2 Paresthesia of skin; E04.1 Nontoxic single thyroid nodule; E11.9 Type 2 diabetes mellitus without complications; I10 Essential (primary) hypertension; E78.5 Hyperlipidemia, unspecified; Z79.4 Long term (current) use of insulin
CPT/HCPCS: 36415; 36416; 70450; 70496; 70498; 70551; 80048; 80053; 80306; 81003; 82962; 83735; 84439; 84443; 84484; 85025; 93005; 93306; 96372; 99285; G0378; J1650; J1815; Q9967

== ENCOUNTER → 2022-01-26 09:27 | Outpatient (BNVA) | payer MEDICARE, SELFPAY ==
--- NOTE | 2022-02-09 11:52 | PM.MISC ---
Miscellaneous Note Note: Updated patient regarding thyroid ultrasound She will need close follow-up, I have notified patient, she might benefit from FNA
--- NOTE | 2022-02-09 11:55 | P.MISC_ITS ---
Miscellaneous Note Note: Lauren stating that she would call Dr. Archer ENT surgeon to make an appointment to follow-up on her thyroid nodule whether she would need fine- needle aspiration biopsy versus another ultrasound this year. She understood my instructions clearly and she was very appreciative of close follow-up
== END ==
PROVIDERS: PCP Family Medicine; Visit Provider Specialist
DX: E11.9 Type 2 diabetes mellitus without complications (principal); Z79.4 Long term (current) use of insulin; I10 Essential (primary) hypertension; E78.2 Mixed hyperlipidemia; Z86.73 Personal history of transient ischemic attack (TIA), and cerebral infarction without residual deficits; E66.3 Overweight; Z68.33 Body mass index [BMI] 33.0-33.9, adult
CPT/HCPCS: 99204; 99205

== ENCOUNTER → 2022-02-08 08:40 | Outpatient (BNVA) | payer MEDICARE, SELFPAY | PROVIDERS: PCP Family Medicine; Visit Provider Family Medicine | DX: E11.9 Type 2 diabetes mellitus without complications (principal); I10 Essential (primary) hypertension; R53.83 Other fatigue | CPT/HCPCS: 80053; 83036; 85025 ==

== ENCOUNTER 2022-02-09 09:36 | Outpatient (CLI) | payer MEDICARE, SELFPAY ==
--- NOTE | 2022-02-09 10:00 | US_ITS ---
WS: [id number] THYROID ULTRASOUND (TI-RADS CRITERIA) History: Thyroid nodule.. Technique: Ultrasound examination of the thyroid and adjacent soft tissues is performed. FINDINGS: Right lobe: 4.7 cm x 1.9 cm x 1.5 cm. Volume: 6.9 cm3. Normal size gland. Mildly hypoechoic nodule inferior pole. See below. Lymph nodes: None. NODULE: 1 Size: 1.2 x 1.0 x 1.5 cm. Location: Lower pole Composition: Solid/almost completely solid (2) Echogenicity: Hypoechoic (2) Shape: Not taller than wide (0) Margins: Smooth (0) Echogenic foci: None (0) ACR TI-RADS total points: 4 ACR TI-RADS risk category: TR4 Left lobe: 4.7 cm x 1.6 cm x 1.2 cm. Volume: 4.8 cm3. Normal size and echotexture. No significant or dominant nodules are present. Lymph nodes: None. Isthmus: 0.4 cm. US/US thyroid 38112 Impression: TR4 Recommendation:Recommend follow-up ultrasound in one, 2, 3 5 years. Moderate jennings spicion for malignancy. Fine-needle aspiration may also be performed as an alte rnative to follow-up. If thyroid nodule(s) change on follow-up examinations the recommendations will be altered as necessary.
== END 2022-02-09 09:37 | disposition home or self-care (01) ==
LOC: RAD 09:37
PROVIDERS: PCP Family Medicine; Visit Provider Internal Medicine
DX: E04.1 Nontoxic single thyroid nodule (principal)
CPT/HCPCS: 76536

== ENCOUNTER 2022-02-18 10:01 | Outpatient (CLI) | payer MEDICARE, SELFPAY ==
--- NOTE | 2022-02-18 | MM_ITS ---
WS: [id number] BILATERAL SCREENING DIGITAL BREAST TOMOSYNTHESIS MAMMOGRAM WITH CAD HISTORY: SCREENING COMPARISON: 12/24/2020, 02/28/2017 Bilateral CC and MLO views with tomosynthesis and synthetic mammography submitted. Computer aided det ection analyzed. Breast composition: There are scattered areas of fibroglandular density. No suspicious masses, microc alcifications or architectural distortion. Benign calcifications. MM/[place] [id number] IMPRESSION: BI-RADS: 2-Benign FOLLOW UP: 1 Year Follow-up
== END 2022-02-18 10:02 | disposition home or self-care (01) ==
PROVIDERS: PCP Family Medicine; Visit Provider Family Medicine
DX: Z12.31 Encounter for screening mammogram for malignant neoplasm of breast (principal)
CPT/HCPCS: 77063; 77067

== ENCOUNTER 2022-04-05 08:27 | Outpatient (CLI) | payer MEDICARE, SELFPAY ==
--- NOTE | 2022-04-05 08:49 | ECG_ITS ---
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 Measurements Intervals [place] Rate: 77 P: 3 [place]: 165 QRS: -34 QRSD: 84 T: -2 QT: 346 QTc: 392 Interpretive Statements SINUS RHYTHM LOW QRS VOLTAGE IN PRECORDIAL LEADS [QRS DEFLECTION < 1.0 mV IN CHEST LEADS] INFERIOR MYOCARDIAL INFARCTION , PROBABLY OLD [40+ ms Q WAVE AND/OR ST/T ABNORMALITY IN II/aVF] ANTEROSEPTAL MYOCARDIAL INFARCTION , PROBABLY OLD [40+ ms Q WAVE IN V1-V4] Compared to ECG 01/23/2022 09:00:56 No significant changes Electronically Signed On 04-06-2022 7:33:29 CDT by Sadia Noble M.D. [id number]
[2022-04-05 08:59] LABS: Basophils % 0.4 %; Eosinophils # 0.4 10^3/uL (0.0-0.8); Eosinophils % 3.8 %; Hematocrit 49.4 % (37.0-47.0); Hemoglobin 15.7 g/dL (11.5-15.3); Mean Corpuscular HGB Conc 31.8 g/dL (30.0-36.0); Mean Corpuscular Hemoglobin 30.1 pg (28.0-34.0); Mean Corpuscular Volume 94.8 fl (81-99); Mean Platelet Volume 11.2 fL (7.4-10.4); Monocytes # 0.9 10^3/uL (0.2-0.9); Monocytes % 8.8 %; Neutrophils # 4.45 10^3/uL (1.8-7.7); Neutrophils % 45.8 %; Nucleated Red Blood Cells % 0 %; Platelet Count 247 10^3/cmm (130-400); Red Blood Count 5.21 10^6/uL (4.1-5.3); White Blood Count 9.7 10^3/uL (4.0-10.0)
[2022-04-05 09:35] LABS: Alanine Aminotransferase 33 U/L (0-33); Albumin Level 4.5 g/dL (3.5-5.2); Alkaline Phosphatase 73 U/L (35-105); Blood Urea Nitrogen 27 mg/dL (8-23); Calcium 9.6 mg/dL (8.5-10.5); Carbon Dioxide 24 mmol/L (22-29); Chloride 103 mmol/L (98-107); Globulin 2.5 g/dL (1.3-4.6); Glucose 174 mg/dL (65-115); Osmolality Calculated 297 mOsm/kg (285-295); Sodium 139 mmol/L (136-145); Total Bilirubin 0.3 mg/dL (0.15-1.2)
[2022-04-05 09:39] LABS: Anion Gap 16.6 (5-19); Aspartate Amino Transferase 30 U/L (0-32); Potassium 4.6 mmol/L (3.5-5.1)
== END 2022-04-05 08:28 | disposition home or self-care (01) ==
LOC: RT 08:30
PROVIDERS: PCP Family Medicine; Visit Provider Specialist
DX: E04.1 Nontoxic single thyroid nodule (principal)
CPT/HCPCS: 36415; 80053; 85025; 93005

== ENCOUNTER 2022-04-20 15:00 | Observation (INO) | payer MEDICARE, SELFPAY ==
[2022-04-16 09:46] VITALS: BMI 31.9
[2022-04-20 10:23] VITALS: BP 126/78; PULSE 69; RESP 18; TEMP 36.1; O2SAT 95
--- NOTE | 2022-04-20 10:42 | P.ANESASSM_ITS ---
Pre-Anesthetic Assessment Height/Weight: Height 1.55 m Weight 76.657 kg Operation Date: 04/20/22 12:00 Proposed Procedures p Right Hemithyroidectomy 47075,E04.1(Right) - Sabino Hatfield MD Familial anesthetic complications: None Was Beta Yahaira taken within 24 hours: N/A Was Clonidine taken within 24 hours: N/A Last intake: > 8hrs Social No alcohol and No tobacco Exam alert, oriented x 3, clear to auscultation bilaterally and regular rate & rhythm Airway Mallampati: Class II Dentition: full Pulmonary hx pneumonia CV/HEM Hypertension GI Gastroesophageal Reflux Disease and Hiatal Hernia Metabolic Diabetes Mellitus and Hyperlipidemia Neuropsych Transient Ischemic Attack Anesthetic Plan ASA status: 3 Anesthesia: General Risk of > 500 ml blood loss (7ml/kg in children): No Medications/Allergies Home Medications Medication Instructions Recorded Confirmed Last Taken Type dapagliflozin 10 mg tablet 10 mg PO QAM #90 tabs 11/24/21 04/20/22 04/19/22 Rx (Farxiga) Total People Plus 2 tab PO BID 01/23/22 04/16/22 01/23/22 History multivitamin 1 tab PO DAILY 01/23/22 04/20/22 04/19/22 History amlodipine 5 mg tablet 5 mg PO BEDTIME #30 tabs 02/01/22 04/20/22 04/19/22 Rx cetirizine 10 mg tablet 10 mg PO QAM #30 tabs 02/01/22 04/20/22 04/19/22 Rx diclofenac sodium 75 mg 75 mg PO Q12H #60 tabs 02/01/22 04/20/22 04/19/22 Rx tablet,delayed release montelukast 10 mg tablet 10 mg PO BEDTIME #30 tabs 02/01/22 04/20/22 04/19/22 Rx rosuvastatin 10 mg tablet (Crestor) 10 mg PO BEDTIME #30 tabs 02/01/22 04/16/22 Unknown Rx temazepam 30 mg capsule 30 mg PO BEDTIME #30 caps 02/01/22 04/16/22 Unknown Rx blood sugar diagnostic (Easy Touch #100 ea 02/22/22 Unknown Rx Test Strip) insulin detemir U-100 100 unit/mL See Rx Instructions .Route 08/29/22 09/06/22 09/05/22 Rx (3 mL) subcutaneous pen (Levemir .COMPLEX #45 mL FlexTouch U-100 Insulin) losartan 100 mg tablet 30 mg PO BID 04/20/22 04/20/22 04/19/22 History Allergies Allergy/AdvReac Type Severity Reaction Status Date / Time amoxicillin [From Augmentin] Allergy diarrhea Verified 02/17/22 08:51 clavulanic acid Allergy diarrhea Verified 02/17/22 08:51 [From Augmentin] cyclobenzaprine Allergy Unknown Verified 02/17/22 08:51 [From Flexeril] diazepam [From Valium] Allergy unable to Verified 02/17/22 08:51 wake up meperidine [From Demerol] Allergy Unknown Verified 02/17/22 08:51 morphine Allergy hallucinati Verified 02/17/22 08:51 ons pentazocine [From Talwin] Allergy passed out Verified 02/17/22 08:51 Sulfa (Sulfonamide Allergy body Verified 02/17/22 08:51 Antibiotics) doesnt like it tolterodine [From Detrol] Allergy dizziness,c Verified 02/17/22 08:51 onfusion zolpidem [From Ambien] Allergy Unknown Verified 02/17/22 08:51 eszopiclone [From Lunesta] AdvReac Mild ADR-Itching Verified 02/17/22 08:51 tramadol AdvReac Mild itchy Verified 02/17/22 08:51 codeine AdvReac itching Verified 02/17/22 08:51 bandaid adhesive Allergy irritation Uncoded 02/17/22 08:51 at site [facility] Anesthesia Medical History Cataracts, bilateral Diabetes Electrocution and nonfatal effects of electric current Fusion of spine, cervical region GERD (gastroesophageal reflux disease) Hyperlipidemia Hypertension Insomnia Normal Pap smear 2016 Surgical History History of back surgery History of bladder surgery History of carpal tunnel surgery History of colonoscopy 2014 History of hernia repair History of hysterectomy History of tonsillectomy Hx of adenoidectomy Hx of laparoscopic gastric banding Hx of tubal ligation Family History Other CAD (coronary artery disease) Cancer Chronic kidney disease (CKD) Diabetes Hyperlipidemia Hypertension Stroke Thyroid disease Social History Smoking and tobacco status: never smoked Alcohol intake: never Household members: spouse Marital status: Current occupational status: retired and disabled Current gender identity: Female Data Anesthesia Cardiac Studies: Echocardiogram 01/23/22
[2022-04-20] MEDS: sodium chloride 0.9% 1,000 ML 30 ML IV (10:43)
[2022-04-20 10:47] LABS: Glucose Point of Care 112 mg/dL (70-110)
--- NOTE | 2022-04-20 11:52 | W.PM.OPSUD ---
Surgery/Procedure H&P Update DATE OF PROCEDURE: April 20, 2022 DATE H&P PERFORMED: 03/22/22 H&P UPDATE INFORMATION: I have reviewed H&P completed within last 30 days, I have examined patient prior to procedure and No changes to prior documentation PREOP DIAGNOSIS: Right thyroid nodule with suspicious FNA biopsy PLANNED PROCEDURE: Operation Date: 04/20/22 12:00 Proposed Procedures p Right Hemithyroidectomy 04349,E04.1(Right) - Sabino Hatfield MD
[2022-04-20] MEDS: ceFAZolin 2,000 MG in sodium chloride 0.9% (plus) 50 ML 100 MG IV ×2 (11:59→21:12)
[2022-04-20] MEDS: ceFAZolin 1,000 mg SDV 1000 MG IRRIGATION (12:41)
[2022-04-20] MEDS: fluorescein 1 mg Strip 2 MG (12:41)
[2022-04-20] MEDS: EPINEPHrine 1 mg/mL INJ XX (12:41)
[2022-04-20] MEDS: neomycin-poly-bacitracin oint 28 gm 1 APPLIC TOPICAL (13:52)
[2022-04-20] MEDS: thrombin 5,000 unit SDV 5000 UNIT XX ×2 (14:09→16:03)
--- NOTE | 2022-04-20 14:57 | PM.OP ---
Operative Report Date of procedure: April 20, 2022 Pre-op diagnosis: Preop Diagnosis Right thyroid nodule with suspicious FNA biopsy Post-op diagnosis: same Post-op findings: Multinodular right throid lobe Right recurrent laryngeal nerve identified and preserved intact visually and electrically Parathyroid glands identified and preserved in-situ X 2 Procedure done: Right hemithyroidectomy Implants: None Specimens removed/disposition: Right thyroid lobe Pathology: Right thyroid lobe Surgeon: Sabino Hatfield Anesthesia: General Estimated blood loss (mL): 10 IV fluids (mL): 1,400 Urine output (mL): 100 Complications: None Findings: Multinodular right thyroid lobe Right recurrent laryngeal nerve identified and preserved intact Parathyroid Glands X 2 idenified and preserved in-situ Condition: stable Disposition: ICU Brief History: 72 yo wf with a h/o a right thyroid nodule with a suspicious FNA biopsy. The patient desires surgical therapy/biopsy. Procedure: The patient was identified in the preoperative holding area and was taken to the operating room where she was placed on the operating table in the supine position. Anesthesia was obtained with general endotracheal anesthesia after placing the Nirvana nerve monitoring electrode on the endotracheal tube. A horizontal skin incision was marked out on the patient and was injected with local anesthesia. The patient was then prepped and draped in usual sterile fashion. The Neurvana nerve monitoring system was placed on the patient and its function was ensured. The neck incision was made with a #15 blade and was carried down through the subcutaneous tissues using electrocautery until the strap muscles were identified. The strap muscles were then dissected in the sagittal plane in the avascular midline and the strap muscles were then elevated off of the right thyroid lobe. The thyroid isthmus was identified and was dissected off of the trachea. The [place] retractor was then placed in the wound. The thyroid isthmus was then divided using the harmonic scalpel. Attention was then turned to the right thyroid lobe which was then dissected free from the surrounding tissues in a circumferential fashion using the Nirvana nerve monitoring hemostat. As the dissection proceeded on the right thyroid lobe, the right thyroid lobe was rotated medially into the wound exposing the tracheoesophageal groove. The inferior pole blood vessels and the middle thyroid vein were identified individually ligated and divided. The superior pole vessels were also dissected free from the surrounding tissues and were clipped and divided as well individually. As the dissection proceeded, the tracheoesophageal groove at the level of the inferior border the cricoid cartilage was identified and the recurrent laryngeal nerve was identified in this location both visually and electrically. Prior to dissecting in the tracheoesophageal groove, the Nirvana nerve monitoring function was confirmed by stimulating the right-sided vagus nerve in the carotid shealth with positive results. The right recurrent laryngeal nerve was identified and preserved in place and the right thyroid lobe was dissected off of the trachea through the Mandujano's ligament with bipolar cautery. The right thyroid lobe was removed and was inspected for any residual parathyroid glands which were not present on the the lobe itself. The right tracheoesophageal groove was then inspected and the parathyroids were identified preserved in place. Hemostasis was then achieved with bipolar cautery. The right tracheoesophageal groove was then irrigated with a copious amount of normal saline and reinspected for hemostasis which was found to be adequate. At this point Gelfoam soaked in thrombin and Decadron were placed in the right tracheoesophageal groove and a drain was placed in the wound. The wound was then closed with interrupted 4-0 Monocryl sutures subcu and a running 5-0 subcuticular Monocryl. The skin was then closed finally with Dermabond. At this point the procedure was terminated and control of the patient was returned to anesthesia where she underwent an uneventful reversal of anesthesia and extubation and was taken to the recovery room in stable condition. There were no operative or anesthetic complications.
--- NOTE | 2022-04-20 15:29 | ANE.PACU2 ---
Inpatient post-anesthesia follow up: Airway intact: Yes Vital signs: Temperature 97 F Pulse Rate 69 Respiratory Rate 18 Blood Pressure 126/78 Pulse Oximetry 95 Oxygen Delivery Me thod Room Air Oxygen Flow Rate Fraction of Inspir ed Oxygen Hydration adequate: Yes Nausea and vomiting: No Pain level: 1 Mental status: Baseline
[2022-04-20 15:50] VITALS: BP 126/78; PULSE 69; RESP 18; TEMP 36.1; O2SAT 95
[2022-04-20 15:51] VITALS: BMI 31.9
[2022-04-20] MEDS: HYDROcodone-acetaminophen 5-325 mg Tablet 1 TAB PO (16:10)
[2022-04-20] MEDS: neomycin-poly-dex Op oint 3.5 gm 1 APPLIC EYE-BOTH ×2 (16:50→18:05)
--- NOTE | 2022-04-20 17:11 | PC.NURSE ---
Pt to unit Pt brought to unit by OR staff. Pt is alert and oriented. Pt has medial incision to anterior neck with murali drain in place. Incision is dry with dermabond. Pt is able to answer questions. is at bedside. Call light within reach and orientation to room has been completed.
--- NOTE | 2022-04-20 17:55 | PC.NURSE ---
Pt has eye pain Pt complaining of right eye pain. Dr Hatfield notified and orders for ointment placed and administered. Pt 45min later complaining of worse eye pain. Dr Hatfield notified awaiting further orders.
[2022-04-20 18:12] LABS: Glucose Point of Care 162 mg/dL (70-110)
--- NOTE | 2022-04-20 18:15 | PM.PN ---
Subjective Subjective: 72 yo wf who is night of surgery s/p right hemithyroidectomy. The patient reports minimal pain in the neck, but c/o right sided eye pain that is very bothersome to her. The patient is o/w without c/o. Medications: Reviewed: Yes Vitals/I&O/Wt Last Vital Signs Temp 97 F L 04/20/22 15:50 Pulse 69 04/20/22 15:50 Resp 18 04/20/22 15:50 BP 126/78 04/20/22 15:50 Pulse Ox 95 04/20/22 15:50 O2 Del Method 04/20/22 15:51 04/20/22 04/20/22 04/20/22 06:59 14:59 22:59 Intake Total 50 / 50 Output Total 150 / 150 Balance 50 / 50 -150 / -100 Weight last 48 hrs Weight 76.657 kg Physical Exam Const: COMMON NORMALS: no acute distress, patient oriented x3 and alert HENMT: COMMON NORMALS: normocephalic and atraumatic HEAD & SCALP: normocephalic and atraumatic Eye: COMMON NORMALS: EOMs intact bilaterally, conjunctivae normal and no scleral icterus CONJUNCTIVA: Yes conjunctivae normal Neck/C-Spine: COMMON NORMALS: full ROM, no lymphadenopathy and supple GENERAL: Yes trachea midline THYROID: other (Neck wound intact without erythema or swelling.) Lymph: LYMPHATIC: no lymphadenopathy noted Resp: COMMON NORMALS: normal respiratory effort, No retractions, No use of accessory muscles and clear to auscultation bilaterally AUSCULTATION: clear to auscultation bilaterally Cardio: COMMON NORMALS: regular rate, regular rhythm and No murmurs present (Cardio) RATE: regular rate RHYTHM: regular rhythm Neuro: COMMON NORMALS: patient oriented x3 SENSORIUM/ORIENTATION: Yes alert Urinary Catheter Management: Rebollar: Cath Placed During This Visit: yes, but has since been removed by the nurse Urinary Catheter Date of Insertion: 04/20/22 Urinary Catheter Time of Insertion: 12:28 Date Urinary Catheter Removed: 04/20/22 Time Urinary Catheter Discontinued: 14:49 A&P Assessment and plan (1) Thyroid adenoma: Impression: 72 yo wf who is doing well s/p right hemithyroidectomy except as noted below Plan: - Overnight observation in the ICU - Regular diet - Pain medications - Anticipate d/c in the am Status: Acute (2) Cornea abrasion: Impression: Acute right eye pain - most likely secondary to a corneal abrasion Plan: - Maxitrol ointment to the right eye started - Ophthalmology consult sent/Dr. Florian Echols contacted - Recommendations as per Dr. 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
[2022-04-20] MEDS: atorvastatin 40 mg Tablet PO (20:49)
[2022-04-20] MEDS: famotidine 20 mg/2 mL INJ IVP (20:50)
[2022-04-20] MEDS: amlodipine 5 mg Tablet PO (20:50)
[2022-04-20] MEDS: montelukast sodium 10 mg Tablet PO (20:50)
[2022-04-20] MEDS: temazepam 15 mg Capsule 30 MG PO (20:53)
[2022-04-20] MEDS: losartan 50 mg Tablet PO (21:41)
[2022-04-20 21:50] LABS: Glucose Point of Care 171 mg/dL (70-110)
[2022-04-20] MEDS: diclofenac 75 mg DR Tablet PO (21:55)
[2022-04-20 22:00] VITALS: PULSE 80
[2022-04-21] MEDS: lactated ringers 1,000 ML 100 ML IV (00:02)
[2022-04-21] MEDS: HYDROcodone-acetaminophen 5-325 mg Tablet 1 TAB PO ×2 (00:02→07:23)
[2022-04-21] MEDS: ceFAZolin 2,000 MG in sodium chloride 0.9% (plus) 50 ML 100 MG IV (04:07)
--- NOTE | 2022-04-21 04:25 | PM.PN ---
Subjective Subjective: 72 yo wf who is POD #1 s/p right hemithyroidectomy who is doing well. The patient sustained a right sided corneal abrasion, but is symptomatically improved this morning. The patient is o/w without c/o. Medications: Reviewed: Yes Vitals/I&O/Wt Last Vital Signs Temp 97 F L 04/20/22 15:50 Pulse 80 04/20/22 22:00 Resp 18 04/20/22 15:50 BP 126/78 04/20/22 15:50 Pulse Ox 95 04/20/22 15:50 O2 Del Method 04/20/22 15:51 04/20/22 04/20/22 04/21/22 14:59 22:59 06:59 Intake Total 50 / 50 298.5 / 348.5 Output Total 450 / 450 Balance 50 / 50 -151.5 / -101.5 Weight last 48 hrs Weight 76.657 kg Physical Exam Const: COMMON NORMALS: no acute distress, patient oriented x3 and alert HENMT: COMMON NORMALS: Normal external nose present FACE & SINUS: normal facial exam NOSE: Normal external nose present Eye: COMMON NORMALS: EOMs intact bilaterally, conjunctivae normal and no scleral icterus CONJUNCTIVA: Yes conjunctivae normal Neck/C-Spine: COMMON NORMALS: no lymphadenopathy and supple GENERAL: Yes trachea midline THYROID: other (Thyroid incision intact without swelling. No redness.) Lymph: LYMPHATIC: no lymphadenopathy noted Resp: COMMON NORMALS: normal respiratory effort and clear to auscultation bilaterally AUSCULTATION: clear to auscultation bilaterally Cardio: COMMON NORMALS: regular rate, regular rhythm and No murmurs present (Cardio) RATE: regular rate RHYTHM: regular rhythm GI: COMMON NORMALS: Normal to inspection, nondistended, normoactive bowel sounds present Extremity: COMMON NORMALS: normal to inspection Neuro: COMMON NORMALS: patient oriented x3 and CN's II-XII intact bilaterally SENSORIUM/ORIENTATION: Yes alert CRANIAL NERVES: Yes other (Voice unchanged from preop.) Psych: COMMON NORMALS: mental status grossly normal Urinary Catheter Management: Rebollar: Cath Placed During This Visit: yes, but has since been removed by the nurse Urinary Catheter Date of Insertion: 04/20/22 Urinary Catheter Time of Insertion: 12:28 Date Urinary Catheter Removed: 04/20/22 Time Urinary Catheter Discontinued: 14:49 A&P Assessment and plan (1) Thyroid nodule: Impression: POD #1 s/p right hemithyroidectomy for a right thyroid nodule with suspicious pathology Plan: - D/C to home - [facility] () tabs: take 1-2 tabs po Q5 hours prn pain, #25, NR - Apply AMIE to the right wound drain site TID - Resume all preop medications - F/U in Dr. Hatfield's office on 04/23/22 @ 13:00 - Contact Dr. Hatfield for any problems Status: Acute (2) Cornea abrasion: Impression: Right corneal abrasion, resolving Plan: - The patient was seen by Ophthalmology; f/u with Ophthalmology as needed Status: Acute Attestations Medical Necessity Statement*: Overnight observation of the patient's airway was required Coding Level of Care Code Acute Preflight Mechanic for g Fwd Diagnoses Thyroid nodule E04.1 Cornea abrasion S05.00XA
[2022-04-21 05:26] VITALS: PULSE 79
[2022-04-21] MEDS: cetirizine 10 mg Tablet PO (07:23)
[2022-04-21 07:25] VITALS: BP 124/83; PULSE 76; RESP 20; TEMP 37; O2SAT 93
[2022-04-21] MEDS: famotidine 20 mg/2 mL INJ IVP (08:35)
[2022-04-21 08:36] VITALS: BP 124/83
[2022-04-21] MEDS: diclofenac 75 mg DR Tablet PO (08:36)
[2022-04-21] MEDS: multivitamin therapeutic Tablet 1 TAB PO (08:36)
[2022-04-21] MEDS: losartan 50 mg Tablet PO (08:36)
--- NOTE | 2022-04-21 09:43 | PC.NURSE ---
PT HAS HAD AN UNEVENTFUL MORNING. PT HAS HAD MINIMAL COMPLAINTS OF PAIN. PAIN IS CONTROLLED WITH PRN MEDICATIONS. DISCHARGE PAPERWORK GONE OVER WITH PT. ALL QUESTIONS ANSWERED. IV REMOVED. CATHETER TIP INTACT. PT TOLERATED WELL. PT SAFELY WHEELED OUT BY THIS NURSE.
[2022-04-21 09:46] VITALS: BP 124/83
== END 2022-04-21 09:47 | disposition home or self-care (01) ==
LOC: ICU 04-21 00:42
PROVIDERS: Admitting Provider Specialist; PCP Family Medicine; Visit Provider Specialist
PROC: (CPT 60210; principal; 2022-04-20 12:00)
DX: D34 Benign neoplasm of thyroid gland (principal); S05.01XA Injury of conjunctiva and corneal abrasion without foreign body, right eye, initial encounter; E11.9 Type 2 diabetes mellitus without complications; I10 Essential (primary) hypertension; E78.5 Hyperlipidemia, unspecified; K21.9 Gastro-esophageal reflux disease without esophagitis; Z79.4 Long term (current) use of insulin; Z86.16 Personal history of COVID-19; Z86.73 Personal history of transient ischemic attack (TIA), and cerebral infarction without residual deficits; Z88.0 Allergy status to penicillin; Z88.5 Allergy status to narcotic agent; Z83.49 Family history of other endocrine, nutritional and metabolic diseases
CPT/HCPCS: 60210; 12345; 36416; 51702; 82962; 88307; 88331; 96372; G0378; J0171; J0330; J0690; J1100; J1200; J1815; J2405; J2704; J3010; J3490; J7030

== ENCOUNTER → 2022-06-02 12:12 | Outpatient (BNVA) | payer MEDICARE, SELFPAY | PROVIDERS: PCP Family Medicine; Visit Provider Specialist | DX: G47.00 Insomnia, unspecified (principal); E11.9 Type 2 diabetes mellitus without complications; I10 Essential (primary) hypertension; E78.5 Hyperlipidemia, unspecified; E78.2 Mixed hyperlipidemia; Z79.4 Long term (current) use of insulin | CPT/HCPCS: 80053; 80061; 83036; 84439; 84443; 85025 ==

== ENCOUNTER → 2022-08-10 17:57 | Outpatient (BNVA) | payer MEDICARE, SELFPAY | PROVIDERS: PCP Family Medicine; Visit Provider Specialist | DX: E04.1 Nontoxic single thyroid nodule (principal); G47.00 Insomnia, unspecified | CPT/HCPCS: 84439; 84443 ==

== ENCOUNTER → 2022-09-10 09:03 | Outpatient (BNVA) | payer MEDICARE, SELFPAY | PROVIDERS: PCP Family Medicine; Visit Provider Family Medicine | DX: D34 Benign neoplasm of thyroid gland (principal); E11.9 Type 2 diabetes mellitus without complications; I10 Essential (primary) hypertension; E78.2 Mixed hyperlipidemia; Z79.4 Long term (current) use of insulin; G47.00 Insomnia, unspecified | CPT/HCPCS: 80053; 80061; 83036; 84439; 84443; 84481; 85025 ==

== ENCOUNTER → 2022-12-16 08:50 | Outpatient (BNVA) | payer MEDICARE, SELFPAY | PROVIDERS: PCP Family Medicine; Visit Provider Family Medicine | DX: G47.00 Insomnia, unspecified (principal); E04.1 Nontoxic single thyroid nodule; E11.9 Type 2 diabetes mellitus without complications; I10 Essential (primary) hypertension; E78.5 Hyperlipidemia, unspecified | CPT/HCPCS: 80053; 80061; 83036; 84439; 84443; 85025 ==

== ENCOUNTER 2022-12-18 11:32 | Outpatient (CLI) | payer MEDICARE, SELFPAY ==
--- NOTE | 2022-12-18 12:00 | US_ITS ---
WS: [id number] ULTRASOUND THYROID TECHNIQUE: Ultrasound of the thyroid. CLINICAL INFORMATION: thyroid nodule COMPARISON: February 09, 2022 FINDINGS: Thyroid: Prior RIGHT thyroidectomy is new from previous. Right thyroid lobe: RIGHT thyroidectomy. Left thyroid lobe: 4.5 cm x 1.6 cm x 1.0 cm. Small mixed echogenicity LEFT thyroid nodule in the mid thyroid measuring 3.6 x 3.2 x 5.8 mm. Isthmus: 0.2 mm. Cervical lymphadenopathy: None. US/US thyroid [id number] IMPRESSION: 1. Small mixed echogenicity LEFT thyroid nodule in the mid thyroid measuring 3 .6 x 3.2 x 5.8 mm. 2. Prior RIGHT thyroidectomy. 3. No other suspicious findings.
== END 2022-12-18 11:33 | disposition home or self-care (01) ==
PROVIDERS: PCP Family Medicine; Visit Provider Family Medicine
DX: E04.1 Nontoxic single thyroid nodule (principal); D34 Benign neoplasm of thyroid gland; R79.89 Other specified abnormal findings of blood chemistry
CPT/HCPCS: 76536

== ENCOUNTER → 2023-04-04 08:29 | Outpatient (BNVA) | payer MEDICARE, SELFPAY | PROVIDERS: PCP Family Medicine; Visit Provider Family Medicine | DX: E04.1 Nontoxic single thyroid nodule (principal); R79.89 Other specified abnormal findings of blood chemistry; E11.9 Type 2 diabetes mellitus without complications; I10 Essential (primary) hypertension; E78.5 Hyperlipidemia, unspecified; Z79.4 Long term (current) use of insulin; G47.00 Insomnia, unspecified | CPT/HCPCS: 80053; 80061; 83036; 84439; 84443; 84481; 85025 ==

== ENCOUNTER → 2023-06-15 15:36 | Outpatient (BNVA) | payer MEDICARE, SELFPAY | PROVIDERS: PCP Family Medicine; Visit Provider Family Medicine | DX: J02.9 Acute pharyngitis, unspecified (principal) | CPT/HCPCS: 87071; 87880 ==

== ENCOUNTER → 2023-07-11 11:50 | Outpatient (BNVA) | payer MEDICARE, SELFPAY | PROVIDERS: PCP Family Medicine; Visit Provider Family Medicine | DX: E11.9 Type 2 diabetes mellitus without complications (principal); I10 Essential (primary) hypertension; E78.5 Hyperlipidemia, unspecified; K21.9 Gastro-esophageal reflux disease without esophagitis; Z79.4 Long term (current) use of insulin; E78.2 Mixed hyperlipidemia; G47.00 Insomnia, unspecified | CPT/HCPCS: 80053; 80061; 83036; 84443 ==

== ENCOUNTER → 2023-12-19 08:43 | Outpatient (BNVA) | payer MEDICARE, SELFPAY | PROVIDERS: PCP Family Medicine; Visit Provider Family Medicine | DX: E03.9 Hypothyroidism, unspecified (principal); E11.9 Type 2 diabetes mellitus without complications; Z79.4 Long term (current) use of insulin; E78.2 Mixed hyperlipidemia; G47.00 Insomnia, unspecified | CPT/HCPCS: 80053; 80061; 83036; 83721; 84443; 85025 ==

== ENCOUNTER 2024-01-31 11:31 | Outpatient (CLI) | payer MEDICARE, SELFPAY ==
--- NOTE | 2024-01-31 11:30 | MM_ITS ---
WS: [id number] VIEWS: MLO and CC views both breasts. 3D digital tomosynthesis is also included in this exam. Comparison made with prior exam of 02/02/2013, 04/12/2014, 09/30/2015, 01/24/2017, 12/24/2020, 02/18/2022.. Findings: There was no sign of mass, architectural distortion or suspicious calcification in either breast. The re are scattered areas of fibroglandular density MM/[place] [id number] Impression: BI-RADS: 2-Benign finding. FOLLOW-UP: 1 Year Follow-up This mammogram was also analyzed by the Computer Aided Detection System R2 Imag e Geriatric Psychiatrist.
== END 2024-01-31 11:32 | disposition home or self-care (01) ==
LOC: MOBLMAM 11:38
PROVIDERS: PCP Family Medicine; Visit Provider Family Medicine
DX: Z12.31 Encounter for screening mammogram for malignant neoplasm of breast (principal)
CPT/HCPCS: 77063; 77067

== ENCOUNTER → 2024-03-19 09:07 | Outpatient (BNVA) | payer MEDICARE, SELFPAY | PROVIDERS: PCP Family Medicine; Visit Provider Family Medicine | DX: E03.9 Hypothyroidism, unspecified (principal); E78.2 Mixed hyperlipidemia; E11.9 Type 2 diabetes mellitus without complications | CPT/HCPCS: 80053; 80061; 83036; 84443; 85025 ==

== ENCOUNTER 2024-06-20 06:00 | Outpatient (RCR) | payer MEDICARE, SELFPAY | END 2024-07-14 23:59 | disposition home or self-care (01) | LOC: APT 06:00 | PROVIDERS: Visit Provider Orthopaedic Surgery | DX: M22.2X2 Patellofemoral disorders, left knee (principal) | CPT/HCPCS: 97110; 97112; 97530 ==

== ENCOUNTER 2024-07-15 06:00 | Outpatient (RCR) | payer MEDICARE, SELFPAY | END 2024-08-14 23:59 | disposition home or self-care (01) | LOC: APT 06:00 | PROVIDERS: Visit Provider Orthopaedic Surgery | DX: M22.2X2 Patellofemoral disorders, left knee (principal) | CPT/HCPCS: 97110; 97112; 97530 ==

== ENCOUNTER 2024-08-15 06:00 | Outpatient (RCR) | payer MEDICARE, SELFPAY | END 2024-09-14 23:59 | disposition home or self-care (01) | LOC: APT 06:00 | PROVIDERS: Visit Provider Orthopaedic Surgery | DX: M22.2X2 Patellofemoral disorders, left knee (principal) | CPT/HCPCS: 97110; 97112; 97530 ==